=== PATIENT | male | born 1980 | race African-American/Black ===

== ENCOUNTER 2022-09-08 12:02 | Emergency (ER) | payer SELFPAY ==
[~2022-09-08] VITALS: Ht 200 cm; Wt 79.3 kg
[2022-09-08] MEDS ORDERED: IBUPROFEN 800 MG (MOTRIN) TAB PO STA (12:30)
[2022-09-08] MEDS ORDERED: ACETAMINOPHEN 500 MG TAB (TYLENOL) PO STA (12:30)
--- NOTE | 2022-09-08 12:30 | ED EENT ---
History of Present Illness General Chief Complaint: Dental Problems/Pain Stated Complaint: TOOTHACHE Nursing Triage Note: pt presents to ed via pov from home with complaints of r sided dental pain starting 3 days ago but worse last night. pt reports he took 3 aleve around 2200 yesterday. Source: patient Exam Limitations: no limitations History of Present Illness Date Seen by Provider: Sep 08, 2022 Time Seen by Provider: 12:22 Initial Comments 41-year-old male presents to the ED with complaints of toothache for the last couple days. States pain became worse last night. He last took 3 Aleve last night. Patient educated on correct dosage of Aleve. Denies any past medical hi story, does not take any medications. Denies any fevers, chest pain, shortness of air, abdominal pain. Allergies and Home Medications Allergies Coded Allergies: No Known Drug Allergies (Unverified , 09/08/22) Patient Home Medication List Home Medication List Reviewed: Yes Amoxicillin/Potassium Clav (Amox Tr-K Clv 875-125 mg Tab) 875 Mg-125 Mg Tablet, 1 EACH PO BID Prescribed by: Alida Waller on 09/08/22 1236 Review of Systems Review of Systems Constitutional: see HPI Past Dggnifx-Uatbka-Bfwwgy Hx Patient Social History Tobacco Use?: No Use of E-Cig and/or Vaping dev: Yes E-Cig or Vaping type used: CBD Use of E-Cig and/or Vaping Juan J: Current Everyday User Substance use?: No Alcohol Use?: No Pt feels they are or have been: No Physical Exam Vital Signs Vital Signs - First Documented 09/08/22 12:16 Temp 36.8 Pulse 99 Resp 16 B/P (MAP) 132/93 (106) Pulse Ox 99 Height, Weight, BMI Height: '" Weight: lbs. oz. kg; 19.00 BMI Method: General Appearance: WD/WN, no apparent distress Mouth/Throat: other (Multiple missing and broken teeth, dental abscess forming to right upper molar area) Neck: supple, normal inspection Cardiovascular: regular rate, rhythm, no edema, no gallop, no JVD, no murmur Respiratory: lungs clear, normal breath sounds, no respiratory distress, no accessory muscle use Neurologic/Psychiatric: alert, normal mood/affect Skin: normal color, warm/dry Progress/Results/Core Measures Results/Orders My Orders Orders - ALIDA WALLER APRN Acetaminophen Tablet (Tylenol Tablet) (09/08/22 12:30) Ibuprofen Tablet (Motrin Tablet) (09/08/22 12:30) Vital Signs/I&O 09/08/22 09/08/22 12:16 12:41 Temp 36.8 36.8 Pulse 99 99 Resp 16 16 B/P (MAP) 132/93 (106) 132/93 Pulse Ox 99 99 Blood Pressure Mean: 106 Progress Progress Note : Time: 12:29 Progress Note Patient seen and evaluated, resting company in bed, no acute distress. Based on exam and symptoms, will treat for dental abscess. Will prescribe antibiotic. Discharge instruction and return precautions provided. Departure Impression Primary Impression: Dental caries Disposition: HOME, SELF-CARE Condition: Stable Departure-Patient Inst. Decision time for Depature: 12:33 Referrals: NO,LOCAL PHYSICIAN (PCP/Family) Primary Care Physician Patient Instructions: Tooth Abscess (DC) Add. Discharge Instructions: Complete full course of antibiotic even if you begin to feel better. Follow-up with dentist. [facility] has dental services. You may take an 800 mg of ibuprofen every 8 hours with food as needed for pain. You may also take 1000 mg of Tylenol every 8 hours as needed for pain. Return for any new, concerning, worsening symptoms or All discharge instructions reviewed with patient and/or family. Voiced understanding. Scripts Amoxicillin/Potassium Clav (Amox Tr-K Clv 875-125 mg Tab) 875 Mg-125 Mg Tablet 1 EACH PO BID for 10 Days, #20 TAB 0 Refills Prov: ALIDA WALLER APRN 09/08/22 ALIDA WALLER APRN Sep 08, 2022 12:30
[2022-09-08] MEDS ORDERED: AMOX1TAB12 PO (12:36)
[2022-09-08 12:41] VITALS: BP 132/93
== END 2022-09-08 12:41 | disposition home or self-care (01) ==
LOC: ER 12:05
DX: K02.9 Dental caries, unspecified (principal); K04.7 Periapical abscess without sinus; K03.81 Cracked tooth; F17.290 Nicotine dependence, other tobacco product, uncomplicated
CPT/HCPCS: 99283